=== PATIENT | female | born 1995 | race Caucasian/White ===

== ENCOUNTER 2024-10-15 09:09 | Day surgery (SDC) | payer SELFPAY ==
[2024-10-05 15:29] VITALS: BMI 28.5
[2024-10-15] MEDS ORDERED: NITROGLYCERIN 2% OINTMENT - 1GM PACKET TD ONE (09:45)
[2024-10-15] MEDS ORDERED: POLYMYXIN B SULFATE 500,000 UNIT VIAL ONE (09:45)
[2024-10-15] MEDS ORDERED: GENTAMICIN SO4 80 MG/2 ML VIAL ONE (09:45)
[2024-10-15] MEDS ORDERED: BACITRACIN ZINC 15 GM TUBE TOPICAL OINTMENT ONE (09:45)
[2024-10-15] MEDS ORDERED: ceFAZolin SODIUM 1 GM VIAL ONE ×3 (09:45→16:39)
[2024-10-15] MEDS ORDERED: EPINEPHrine 1:1000 P/F - 1 MG/ML AMP ONE (09:59)
[2024-10-15] MEDS ORDERED: MIDAZOLAM HCL 2 MG/2 ML SINGLE DOSE VIAL ONE (10:05)
[2024-10-15] MEDS ORDERED: PROPOFOL 20 ML ONE ×2 (10:05→16:35)
[2024-10-15] MEDS ORDERED: ONDANSETRON 4 MG/2 ML VIAL ONE (10:07)
[2024-10-15] MEDS ORDERED: DEXAMETHASONE SOD PHOSPHATE 4 MG/1 ML VIAL ONE (10:07)
[2024-10-15] MEDS ORDERED: NEOSTIGMINE METHYLSULFATE 0.5 MG/1 ML - 10 ML MDV ONE (10:13)
[2024-10-15] MEDS ORDERED: GLYCOPYRROLATE 0.2 MG/1 ML VIAL ONE (10:15)
[2024-10-15] MEDS ORDERED: BUPIVACAINE LIPOSOME/PF (EXPAREL) 266 MG/20 ML VIAL ONE (11:02)
[2024-10-15] MEDS ORDERED: BUPIVACAINE HCL/PF 2.5 MG/ML - 30 ML VIAL IJ ONE (11:03)
[2024-10-15] MEDS ORDERED: BUPIVACAINE HCL/PF 0.25% (2.5MG/ML) 10 ML VIAL ONE (11:04)
[2024-10-15] MEDS ORDERED: HEPARIN NA (PORCINE) 5,000 UNITS/ML 1ML VIAL ONE (11:04)
[2024-10-15] MEDS ORDERED: PROMETHAZINE HCL 25 MG/1 ML VIAL IVPB PRN (11:08)
[2024-10-15] MEDS ORDERED: oxyCODONE HCL 5 MG TABLET PO PRN ×2 (11:08→17:51)
[2024-10-15] MEDS ORDERED: ONDANSETRON 4 MG/2 ML VIAL IVPUSH PRN (11:08)
[2024-10-15] MEDS ORDERED: LACTATED RINGERS SOLUTION 1,000 ML IV SCH ×2 (11:15→18:00)
[2024-10-15] MEDS ORDERED: ACETAMINOPHEN INJECTION 100 ML ONE ×2 (11:19→17:38)
[2024-10-15] MEDS ORDERED: ROCURONIUM BROMIDE 50 MG/5 ML SYRINGE ONE ×2 (11:22→12:19)
[2024-10-15] MEDS ORDERED: SEVOFLURANE 250 ML BTL ONE ×2 (16:49)
[2024-10-15] MEDS ORDERED: FENTANYL CITRATE/PF 50 MCG/ML VIAL ONE ×2 (17:32→17:56)
[2024-10-15] MEDS ORDERED: ONDANSETRON 4 MG/2 ML VIAL IVPB PRN (17:51)
[2024-10-15] MEDS: ACETAMINOPHEN 1000 MG/100 ML BAG IVPB PRN (18:01)
[2024-10-15 19:18] VITALS: RESP 18
[2024-10-15] MEDS: oxyCODONE HCL 5 MG TABLET PO PRN (19:53)
[2024-10-15] MEDS: CEFAZOLIN 1 GM/D5W 1 GM/50 ML BAG IVPB SCH (21:01)
[2024-10-15] MEDS ORDERED: KETOROLAC TROMETHAMINE 30 MG/1 ML VIAL IM PRN (22:41)
[2024-10-15] MEDS: HYDROmorphone HCl 2 MG/ML VIAL IVPUSH PRN (23:17)
[2024-10-16] MEDS: HEPARIN NA (PORCINE) 5,000 UNITS/ML 1ML VIAL SQ ONE (01:39)
[2024-10-16] MEDS: LEVOTHYROXINE NA 25 MCG TABLET (FP) PO SCH (06:36)
[2024-10-16 06:37] VITALS: TEMP 98.4
[2024-10-16] MEDS: HEPARIN NA (PORCINE) 5,000 UNITS/ML 1ML VIAL SQ SCH (08:20)
[2024-10-16 11:09] VITALS: BP 105/77; PULSE 78
== END 2024-10-16 12:30 | disposition home or self-care (01) ==
LOC: FASUSAT 09:09 → FM/S 18:16 → FASUSAT 10-16 12:30
PROVIDERS: ATTEND Plastic Surgery
PROC: 0W0F0ZZ Alteration of Abdominal Wall, Open Approach (ICD-10-PCS; 2024-10-15)
PROC: 0J083ZZ Alteration of Abdomen Subcutaneous Tissue and Fascia, Percutaneous Approach (ICD-10-PCS; 2024-10-15)
PROC: 0HPU0JZ Removal of Synthetic Substitute from Left Breast, Open Approach (ICD-10-PCS; principal; 2024-10-15 12:12)
PROC: 0HPT0JZ Removal of Synthetic Substitute from Right Breast, Open Approach (ICD-10-PCS; 2024-10-15 12:12)
PROC: 0HRV0JZ Replacement of Bilateral Breast with Synthetic Substitute, Open Approach (ICD-10-PCS; 2024-10-15 12:12)
DX: Z41.1 Encounter for cosmetic surgery (principal)
CPT/HCPCS: 15830; 15847; 15877; 19342; 19371; L8600; 81025; 88300-TC; 88304-TC; 94760; J0131; J1644